=== PATIENT | female | born 1970 | race Caucasian/White ===

== ENCOUNTER → 2018-01-27 | Outpatient (CLI) | payer MEDICARE ==
[~2018-01-27] MED LIST: AMOX1TAB64 PO; ESTR1TAB15 PO; FENO145T32 PO; FLUO40CA2 PO; GABA300C10 PO; LISI2.5T PO; METF500T27 PO; METH5TAB2 PO; MONT10TA9 PO; REGADENOSON 0.4 MG/5 ML SYRINGE ONE; SIMV40TA3 PO; TIZA4CAP2 PO
== END | disposition home or self-care (01) ==
LOC: CFH 09:33
PROVIDERS: ATTEND Physician Assistant
DX: I25.89 Other forms of chronic ischemic heart disease (principal)
CPT/HCPCS: 78452; J2785

== ENCOUNTER → 2019-12-28 | Outpatient (CLI) | payer MEDICARE ==
[~2019-12-28] MED LIST changes: +MONT10TA11 PO; -MONT10TA9 PO; +OMNIPAQUE 350 MG/ML, 100ML BOTTLE ONE; +SIMV40TA20 PO; -SIMV40TA3 PO
== END | disposition home or self-care (01) ==
LOC: CFH 07:11
PROVIDERS: ATTEND Internal Medicine Cardiovascular Disease
DX: I06.1 Rheumatic aortic insufficiency (principal); I25.9 Chronic ischemic heart disease, unspecified; I25.10 Atherosclerotic heart disease of native coronary artery without angina pectoris; I10 Essential (primary) hypertension; Z96.89 Presence of other specified functional implants
CPT/HCPCS: 74177; 78452; 93017; 93306; A9502; J2785; Q9967

== ENCOUNTER 2020-11-16 09:26 | Outpatient (CLI) | payer MEDICARE ==
[~2020-11-16 09:26] MED LIST changes: +FENTANYL PF 100 MCG/2ML ONE; +FLUMAZENIL 0.1 MG/1 ML, 5ML ONE; +MIDAZOLAM 1 MG/ML, 5ML ONE; -MONT10TA11 PO; +MONT10TA17 PO; +NALOXONE 1 MG/ML, 2ML ONE; -OMNIPAQUE 350 MG/ML, 100ML BOTTLE ONE; -REGADENOSON 0.4 MG/5 ML SYRINGE ONE
== END 2020-11-16 23:59 | disposition home or self-care (01) ==
LOC: RAD 09:26
PROVIDERS: ATTEND Psychiatry & Neurology Neurology
DX: R29.6 Repeated falls (principal); Z88.8 Allergy status to other drugs, medicaments and biological substances; Z79.2 Long term (current) use of antibiotics; Z79.899 Other long term (current) drug therapy; Z88.5 Allergy status to narcotic agent; Z91.040 Latex allergy status
CPT/HCPCS: 70551; 99156; 99157; J2250; J3010; J2310